=== PATIENT | female | born 1970 | race Caucasian/White ===

== ENCOUNTER 2017-07-08 03:04 | Emergency (ER) | payer SELFPAY ==
[~2017-07-08] VITALS: Ht 157.5 cm; Wt 44.0 kg
[2017-07-08 03:06] VITALS: BP 138/73; PULSE 79; RESP 15; TEMP 97.9; O2SAT 96
[2017-07-08] MEDS ORDERED: SODIUM CHLOR 0.9% 1000 ML INJ 1,000 ML IV ONE (06:00)
[2017-07-08] MEDS ORDERED: SODIUM CHLORIDE 0.9% FLUSH 10 ML FLUSH IVF PRN (06:00)
[2017-07-08] MEDS ORDERED: ONDANSETRON HCL 4 MG/2 ML VIAL IVP ONE (06:00)
[2017-07-08 06:24] LABS: AUTOMATED NEUTROPHIL # 6.9 TH/MM3 (1.8-7.7); BACTERIA, URINE RARE /hpf; BASOPHIL % 0.4 % (0.0-2.0); BLOOD, URINE NEG (NEG); COMMENT (UR) CULT NOT INDICATED; CULTURE IF INDICATED CULT NOT INDICATED; EOSINOPHIL # 0.1 TH/MM3 (0-0.4); EOSINOPHIL % 0.6 % (0.0-4.0); GLUCOSE,URINE NEG (NEG); HEMATOCRIT 36.8 % (35.0-46.0); HEMO FLAGS DIFF FINAL; KETONE, URINE NEG (NEG); LYMPH % 34.1 % (9.0-44.0); LYMPHOCYTE # 4.1 TH/MM3 (1.0-4.8); MEAN CELL VOLUME 82.5 FL (80.0-100.0); MEAN CORPUSCULAR HEMOGLOBIN 26.3 PG (27.0-34.0); MEAN CORPUSCULAR HGB CONC 31.9 % (32.0-36.0); MONO % 7.1 % (0.0-8.0); NEUT % 57.8 % (16.0-70.0); NITRITE,URINE NEG (NEG); PH, URINE 6.5 (5.0-8.5); PLATELET COUNT 474 TH/MM3 (150-450); RED BLOOD COUNT 4.46 MIL/MM3 (4.00-5.30); RED CELL DISTRIBUTION WIDTH 17.6 % (11.6-17.2); SQUAMOUS EPITHELIAL CELL URINE 4 /hpf (0-5); URINE COLOR LIGHT-YELLOW (YELLW/STRAW); WHITE BLOOD COUNT 11.9 TH/MM3 (4.0-11.0)
[2017-07-08 06:38] LABS: ANION GAP 8 MEQ/L (5-15); BICARBONATE 28.6 MEQ/L (21.0-32.0); BLOOD UREA NITROGEN 16 MG/DL (7-18); CHLORIDE 104 MEQ/L (98-107); GLOMERULAR FILTRATION RATE 106 ML/MIN (>89); MAGNESIUM 2.3 MG/DL (1.5-2.5); POTASSIUM 3.1 MEQ/L (3.5-5.1); SODIUM (NA) 141 MEQ/L (136-145)
[2017-07-08 06:40] LABS: CREATINE KINASE 116 U/L (26-192)
[2017-07-08 06:46] VITALS: RESP 18; O2SAT 99
[2017-07-08 06:53] LABS: CKMB 1.7 NG/ML (0.5-3.6)
--- NOTE | 2017-07-08 06:55 | RADRPT ---
EXAM DATE/TIME: 07/08/2017 05:56 [place] COMPARISON: No previous studies available for comparison. INDICATIONS : Chest pain- Possible syncopal episode MEDICAL HISTORY : None. SURGICAL HISTORY : Tubal ligation. Appendectomy. Cholecystectomy. ENCOUNTER: Initial ACUITY: 1 day PAIN SCORE: 8/10 LOCATION: Bilateral chest FINDINGS: A single view of the chest demonstrates the lungs to be symmetrically aerated without evidence of mas s, infiltrate or effusion. The cardiomediastinal contours are unremarkable. Osseous structures are intact. CONCLUSION: No acute disease. Arsalan Roberts MD on July 08, 2017 at 6:54 Board Certified Radiologist. This report was verified electronically.
[2017-07-08] MEDS ORDERED: POTASSIUM CHLORIDE 20 MEQ CONTROLLED RELEASE TAB PO ONE (07:00)
[2017-07-08 07:24] VITALS: BP 112/65; RESP 16
[2017-07-08 07:25] VITALS: BP 105/66
[2017-07-08 07:26] VITALS: BP 112/71; RESP 16
--- NOTE | 2017-07-08 07:48 | PD ---
HPI Chief Complaint: Syncope/Near-Syncope Time Seen by Provider: 05:52 Travel History International Travel<30 days: No Contact w/Intl Traveler<30days: No Traveled to known affect area: No History of Present Illness HPI 46-year-old female patient presents in the care of her family for evaluation of syncope. According to the patient and her daughter at bedside patient had eaten pizza and developed epigastric pain and then passed out. There is no injury as patient passed out while sitting in his back seat of a car. Daughter thought that perhaps the mother was not breathing so she shook the brother and yelled her knee when she came to daughter thinks that the episode was 1- 2 minutes; patient awakened and there was no confusion no seizure activity was witnessed. Patient has had no recurrent symptoms since event. Patient has had 40 pound weight loss over the past 3 years and is followed by primary care provider who has referred her to a county historian. Patient states she saw a county historian 3 years ago but has not followed up since because her became ill and then after he she did did not follow-up with anyone. No fever no chills no nausea no vomiting no hematemesis no coffee- ground emesis no melena or hematochezia. Daughter very upset because she reports her mother "has not eaten in 3 years". Patient reports "I cannot eat because of abdominal pain" for 3 years. PFSH Past Medical History Narrative Medical chronic abdominal pain cholecystectomy appendectomy tobacco use alcohol use supple nursing notes reviewed Medical History: Denies Significant Hx ?: Not LMP: IRREG Tubal Ligation: Yes Past Surgical History Appendectomy: Yes Section: Yes Cholecystectomy: Yes Social History Alcohol Use: Yes (1 SHOT PER DAY) Tobacco Use: Yes (1.5 PPD) Substance Use: No Allergies-Medications (Allergen,Severity, Reaction): Uncoded Allergies: SEAFOOD (Allergy, Severe, Anaphylaxis, 07/08/17) Narrative Medication None Review of Systems Except as stated in HPI: all other systems reviewed are Neg General / Constitutional: No: Fever, Chills HENT: No: Congestion Cardiovascular: No: Chest Pain or Discomfort Respiratory: No: Shortness of Breath, Pleuritic Pain Gastrointestinal: Positive: Nausea, Abdominal Pain Genitourinary: No: Flank Pain Musculoskeletal: No: Myalgias, Arthralgias Skin: No Rash Neurologic: Positive: Weakness, Syncope, No: Headache, Change in Mentation, Slurred Speech, Seizures Psychiatric: No: Anxiety Hematologic/Lymphatic: No: Lymph Node Enlargement Physical Exam Narrative GENERAL: Well-developed well-nourished female in no acute distress no respiratory distress SKIN: Warm and dry. HEAD: Normocephalic. EYES: No scleral icterus. No injection or drainage. NECK: Supple, trachea midline. No JVD or lymphadenopathy. CARDIOVASCULAR: Regular rate and rhythm without murmurs, gallops, or rubs. RESPIRATORY: Breath sounds equal bilaterally. No accessory muscle use. GASTROINTESTINAL: Abdomen soft, non-tender, nondistended. MUSCULOSKELETAL: No cyanosis, or edema. BACK: Nontender without obvious deformity. No CVA tenderness. Data Data Last Documented VS Vital Signs Date Time Temp Pulse Resp B/P (MAP) Pulse Ox O2 Delivery O2 Flow Rate FiO2 07/08/17 07:26 87 16 112/71 (85) 07/08/17 07:26 96 Room Air 07/08/17 03:06 97.9 Orders Orders Electrocardiogram (07/08/17 05:52) Basic Metabolic Panel (Bmp) (07/08/17 05:52) Complete Blood Count With Diff (07/08/17 05:52) Magnesium (Mg) (07/08/17 05:52) Ckmb (Isoenzyme) Profile (07/08/17 05:52) Troponin I (07/08/17 05:52) Urinalysis - C+S If Indicated (07/08/17 05:52) Chest, Single Ap (07/08/17 05:52) Blood Glucose (07/08/17 05:52) Ecg Monitoring (07/08/17 05:52) Iv Access Insert/Monitor (07/08/17 05:52) Oximetry (07/08/17 05:52) Ondansetron Inj (Zofran Inj) (07/08/17 06:00) Sodium Chloride 0.9% Flush (Ns Flush) (07/08/17 06:00) Orthostatic Vital Signs (07/08/17 05:52) Sodium Chlor 0.9% 1000 Ml Inj (Ns 1000 M (07/08/17 06:00) CKMB (07/08/17 06:00) CKMB% (07/08/17 06:00) Potassium Chloride (Kcl) (07/08/17 07:00) Ed Discharge Order (07/08/17 07:49) Labs Laboratory Tests Test 07/08/17 06:00 White Blood Count 11.9 TH/MM3 Red Blood Count 4.46 MIL/MM3 Hemoglobin 11.8 GM/DL Hematocrit 36.8 % Mean Corpuscular Volume 82.5 FL Mean Corpuscular Hemoglobin 26.3 PG Mean Corpuscular Hemoglobin Concent 31.9 % Red Cell Distribution Width 17.6 % Platelet Count 474 TH/MM3 Mean Platelet Volume 8.7 FL Neutrophils (%) (Auto) 57.8 % Lymphocytes (%) (Auto) 34.1 % Monocytes (%) (Auto) 7.1 % Eosinophils (%) (Auto) 0.6 % Basophils (%) (Auto) 0.4 % Neutrophils # (Auto) 6.9 TH/MM3 Lymphocytes # (Auto) 4.1 TH/MM3 Monocytes # (Auto) 0.9 TH/MM3 Eosinophils # (Auto) 0.1 TH/MM3 Basophils # (Auto) 0.0 TH/MM3 CBC Comment DIFF FINAL Differential Comment Urine Color LIGHT-YELLOW Urine Turbidity CLEAR Urine pH 6.5 Urine Specific [place] 1.008 Urine Protein NEG mg/dL Urine Glucose (UA) NEG mg/dL Urine Ketones NEG mg/dL Urine Occult Blood NEG Urine Nitrite NEG Urine Bilirubin NEG Urine Urobilinogen LESS THAN 2.0 MG/DL Urine Leukocyte Esterase NEG Urine RBC LESS THAN 1 /hpf Urine WBC 1 /hpf Urine Squamous Epithelial Cells 4 /hpf Urine Bacteria RARE /hpf Microscopic Urinalysis Comment CULT NOT INDICATED Blood Urea Nitrogen 16 MG/DL Creatinine 0.61 MG/DL Random Glucose 73 MG/DL Calcium Level 8.7 MG/DL Magnesium Level 2.3 MG/DL Sodium Level 141 MEQ/L Potassium Level 3.1 MEQ/L Chloride Level 104 MEQ/L Carbon Dioxide Level 28.6 MEQ/L Anion Gap 8 MEQ/L Estimat Glomerular Filtration Rate 106 ML/MIN Total Creatine Kinase 116 U/L Creatine Kinase MB 1.7 NG/ML Troponin I LESS THAN 0.02 NG/ML MDM Medical Decision Making Medical Screen Exam Complete: Yes Emergency Medical Condition: Yes Medical Record Reviewed: Yes Interpretation(s) EKG: Normal sinus rhythm no acute ST elevation or injury pattern or ectopy normal intervals and axis Last Impressions Chest X-Ray 10/22/17 0552 Signed Impressions: Service Date/Time: Saturday, July 08, 2017 05:56 - CONCLUSION: No acute disease. Arsalan Roberts MD CBC & BMP Diagram 07/08/17 06:00 Calcium Level 8.7, Magnesium Level 2.3 Vital Signs Date Time Temp Pulse Resp B/P (MAP) Pulse Ox O2 Delivery O2 Flow Rate FiO2 07/08/17 07:26 87 16 112/71 (85) 07/08/17 07:26 87 16 96 Room Air 07/08/17 07:25 90 105/66 (79) 07/08/17 07:24 78 16 112/65 (81) 07/08/17 06:46 18 99 Room Air 07/08/17 03:06 97.9 79 15 138/73 (94) 96 Room Air Differential Diagnosis Syncope, seizure, arrhythmia, electronic disturbance, dehydration Narrative Course IV access obtained specimens collected and sent for resulting patient given 1 L normal saline Patient resting quietly waiting for lab results Patient identified to have low potassium. Received oral potassium replacement Patient stable for outpatient management Orthostatic measurements performed without significant variance Diagnosis Primary Impression: Vasovagal syncope Referrals: Primary Care Physician call for appointment Patient Instructions: General Instructions Additional Instructions: Increase fluid hydration Abscess inflated foods and beverages to dietary intake Follow-up with primary care provider Return to the emergency department for any concerns Med/Other Pt SpecificInfo: Prescription(s) given Scripts Ondansetron Odt (Zofran Odt) 4 Mg Tab 4 MG SL Q6HR Y for Nausea/Vomiting, #10 TAB 0 Refills Prov: Radha Hinton MD 07/08/17 Disposition: 01 DISCHARGE HOME Condition: Stable Radha Hinton MD Jul 08, 2017 07:48
[2017-07-08] MEDS ORDERED: ZOFR4TAB3 SL (07:50)
--- NOTE | 2017-07-08 13:13 | EKG ---
Date Performed: 07/08/2017 Time Performed: 06:01:01 PTAGE: 46 years EKG: Sinus rhythm NORMAL ECG PREVIOUS TRACING : 07/08/2017 03.24 DOCTOR: Sean Blount Interpretating Date/Time 07/08/2017 13:12:51
--- NOTE | 2017-07-08 13:17 | EKG ---
Date Performed: 07/08/2017 Time Performed: 03:24:06 PTAGE: 46 years EKG: Sinus rhythm NORMAL ECG NO PREVIOUS TRACING DOCTOR: Sean Blount Interpretating Date/Time 07/08/2017 13:14:48
== END 2017-07-08 08:07 | disposition home or self-care (01) ==
LOC: NEPC 03:04
DX: R55 Syncope and collapse (principal); R11.0 Nausea; R53.1 Weakness; R10.13 Epigastric pain; F17.200 Nicotine dependence, unspecified, uncomplicated
CPT/HCPCS: 71010; 80048; 81001; 82550; 82552; 83735; 84484; 85025; 93005; 96361; 96374; 99285; J2405; J7030